=== PATIENT | male | born 1965 | race Caucasian/White ===

== ENCOUNTER → 2017-09-25 | Outpatient (CLI) | payer OTHER ==
--- NOTE | 2017-09-25 09:31 | US ---
EXAMINATION TYPE: US liver DATE OF EXAM: 09/25/2017 COMPARISON: NONE CLINICAL HISTORY: 51-year-old male R74.8 Elevated liver enzymes/serum enzymes. Elevated LFT's TECHNIQUE: Multiple sonographic images of the right upper quadrant are obtained. FINDINGS: EXAM MEASUREMENTS: Liver Length: 18.5 cm Gallbladder Wall: 0.2 cm CBD: 5.3 mm Right Kidney: 11.2 x 5.2 x 5.9 cm Pancreas: Obscured by bowel gas Liver: Mildly enlarged with increased echogenicity. No focal lesion seen. Gallbladder: wnl Evidence for sonographic German's sign: No CBD: wnl Right Kidney: No hydronephrosis IMPRESSION: Mild hepatomegaly (18.5 cm) with increased echogenicity suggesting fatty infiltration. Correlate with LFTs, lipid profile, and patient risk factors.
== END | disposition home or self-care (01) ==
LOC: EDSTATUS 07:40 → RADUSWWP 07:58
PROVIDERS: ATTEND Internal Medicine
DX: R16.0 Hepatomegaly, not elsewhere classified (principal)
CPT/HCPCS: 76705

== ENCOUNTER → 2018-01-23 | Outpatient (CLI) | payer OTHER ==
--- NOTE | 2018-01-25 11:43 | MR ---
EXAMINATION TYPE: MR brain wo con DATE OF EXAM: 01/23/2018 COMPARISON: CT brain 05/12/2014 HISTORY: Neuromyelitis optica CONTRAST: Performed utilizing 0 mL intravenous Gadavist gadolinium contrast. TECHNIQUE: Multiplanar, multiecho imaging on a 3.0 Charlee magnet is performed through the brain. Stud y is performed within 24 hours of arrival to the hospital. The craniovertebral junction is normal. The pituitary is normal. Diffusion-weighted imaging is performed. No abnormal hyperintensity is present to suggest an acute i ntracranial infarct or acute ischemic change. Signal through the brain appears unremarkable. Ventricles and sulci are appropriate for the patient age. Normal vascular flow voids are present. Globes are symmetrical. Extraocular ocular muscles appear unremarkable. Intraconal fat and extraconal fat appears normal. Optic nerves have a normal signal. Optic chiasm is visualized appears normal. Pi tuitary stalk is in the midline. The suprasellar cistern masses are evident. IMPRESSIONS: 1. Unremarkable optic nerves as visualized on the MRI brain. 2. Intracranial MRI appears unremarkable.
== END ==
LOC: RADMRIMAIN 21:08
PROVIDERS: ATTEND Internal Medicine
DX: G36.0 Neuromyelitis optica [Devic] (principal)
CPT/HCPCS: 70551

== ENCOUNTER → 2023-04-02 | Outpatient (CLI) | payer MEDICARE ==
--- NOTE | 2023-04-02 09:10 | US ---
EXAMINATION TYPE: US liver DATE OF EXAM: 04/02/2023 COMPARISON: 09/25/2017 CLINICAL INDICATION: Male, 57 years old with history of R74.01 ELEVATION OF LEVELS OF LIVER TRANSAMIN ASE L; Elevated liver labs. No other pain or symptoms. TECHNIQUE: Multiple sonographic images of the right upper quadrant are obtained. FINDINGS: EXAM MEASUREMENTS: Liver Length: 17.5 cm Gallbladder Wall: 0.2 cm CBD: 0.4 cm Right Kidney: 11.5 x 5.0 x 5.0 cm [employer] NOTES: Limited visualization due to overlying bowel gas and patient body habitus Pancreas: Obscured by bowel gas Liver: Increased attenuation, portions obscured by overlying bowel gas Gallbladder: wnl Evidence for sonographic German's sign: No CBD: wnl as best visualized Right Kidney: No hydronephrosis or masses seen IMPRESSION: 1. Hepatomegaly with mild to moderate fatty protrusion of the liver.
== END | disposition home or self-care (01) ==
LOC: RADUSWWP 07:46
PROVIDERS: ATTEND Family Medicine
DX: K76.0 Fatty (change of) liver, not elsewhere classified (principal); R16.0 Hepatomegaly, not elsewhere classified; R74.01 Elevation of levels of liver transaminase levels
CPT/HCPCS: 76705